=== PATIENT | female | born 2000 | race Caucasian/White ===

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

== ENCOUNTER 2024-12-07 06:53 | Emergency (ER) | payer OTHER ==
[2024-12-07 06:58] VITALS: RESP 20
--- NOTE | 2024-12-07 07:10 | ED ---
Back Pain HPI - General Chief Complaint: Back Pain/Injury Stated Complaint: L side back pain Time Seen by Provider: 12/07/24 06:58 Source: patient, RN notes reviewed Limitations: no limitations - History of Present Illness Initial Comments: 23-year-old female no significant medical history presenting to emergency department for complaint of sciatic nerve irritation. Patient states that she has been battling left-sided sciatic nerve irritation over the past 4 to 6 weeks that originated when she woke up from sleep 1 morning. She denies precipitating falls or injuries. Patient has been evaluated at multiple emergency rooms and outpatient by her primary care provider where she has been referred to physical therapy for further evaluation. Patient states that she completed 3 class of physical therapy and is attempting to schedule closer to where she is enrolled in college. She denies loss of bladder bowel continence, saddle anesthesias, fevers, history of IV drug use. Has been prescribed gabapentin although this medication ran out, has few muscle relaxers left. Recently took Tylenol at 1200am this morning. - Related Data Previous Rx's Medication Instructions Recorded methocarbamoL [Robaxin] 1,000 mg PO QID #20 tab 12/07/24 Allergies Allergy/AdvReac Type Severity Reaction Status Date / Time No Known Allergies Allergy Verified 12/07/24 06:57 Review of Systems ROS Statement: Those systems with pertinent positive or pertinent negative responses have been documented in the HPI. ROS Other: All systems not noted in ROS Statement are negative. Past Medical History Additional Past Medical History / Comment(s): cardiac History of Any Multi-Drug Resistant Organisms: None Reported Past Surgical History: Adenoidectomy, Ear Surgery, Tonsillectomy Past Psychological History: Anxiety, Depression Smoking Status: Former smoker Past Alcohol Use History: None Reported Past Drug Use History: None Reported General Exam Limitations: no limitations General appearance: alert, in no apparent distress Respiratory exam: Present: normal lung sounds bilaterally. Absent: respiratory distress, wheezes, rales, rhonchi, stridor Cardiovascular Exam: Present: regular rate, normal rhythm, normal heart sounds. Absent: systolic murmur, diastolic murmur, rubs, gallop, clicks GI/Abdominal exam: Present: soft, normal bowel sounds. Absent: distended, tenderness, guarding, rebound, rigid Extremities exam: Present: normal inspection, full ROM, normal capillary refill. Absent: tenderness, pedal edema, joint swelling, calf tenderness Back exam: Present: tenderness. Absent: full ROM, CVA tenderness (R), CVA tenderness (L) Expanded Back exam: Positive Straight Leg Raise: Left Neurological exam: Present: alert, oriented X3, CN II-XII intact Course Vital Signs 12/07/24 06:54 Temperature 97.8 F Pulse Rate 111 H Respiratory 20 Rate Blood Pressure 133/82 O2 Sat by Pulse 100 Oximetry Medical Decision Making - Medical Decision Making Was pt. sent in by a medical professional or institution (, [facility], OVER[employer] SH[employer]AGE AND DAMAGE CLERK, urgent care, hospital, or penitentiary...) When possible be specific @ -No Did you speak to anyone other than the patient for history (EMS, parent, family, police, friend...)? What history was obtained from this source @ -No Did you review nursing and triage notes (agree or disagree)? Why? @ -I reviewed and agree with nursing and triage notes Were old charts reviewed (outside hosp., previous admission, EMS record, old EKG, old radiological studies, urgent care reports/EKG's, penitentiary records)? Report findings @ -No old charts were reviewed Differential Diagnosis (chest pain, altered mental status, abdominal pain women, abdominal pain men, vaginal bleeding, weakness, fever, dyspnea, syncope, headache, dizziness, GI bleed, back pain, seizure, CVA, palpatations, mental health, musculoskeletal)? @ -Differential Back Pain: Strain, zoster, cauda equina syndrome, epidural abscess, vertebral osteomyelitis, discitis, fracture, subluxation, disc herniation, DJD, spinal stenosis, dissection, AAA, pancreatitis, peptic ulcer disease, pyelonephritis, k idney stone, this is not meant to be an all-inclusive list. EKG interpreted by me (3pts min.). @ -None X-rays interpreted by me (1pt min.). @ -None done CT interpreted by me (1pt min.). @ -None done U/S interpreted by me (1pt. min.). @ -None done What testing was considered but not performed or refused? (CT, X-rays, U/S, labs)? Why? @ -None What meds were considered but not given or refused? Why? @ -None Did you discuss the management of the patient with other professionals (professionals i.e. , [facility], OVER[employer] SH[employer]AGE AND DAMAGE CLERK, lab, RT, psych nurse, social contact worker, climatology professor, teacher, immigration services officer, supervisor case loading)? Give summary @ -No Was smoking cessation discussed for >3mins.? @ -No Was critical care preformed (if so, how long)? @ -No Were there social determinants of health that impacted care today? How? (Homele ssness, low income, unemployed, alcoholism, drug addiction, transportation, low edu. Level, literacy, decrease access to med. care, retirement, rehab)? @ -No Was there de-escalation of care discussed even if they declined (Discuss DNR or withdrawal of care, Hospice)? DNR status @ -No What co-morbidities impacted this encounter? (DM, HTN, Smoking, COPD, CAD, Cancer, CVA, ARF, Chemo, Hep., AIDS, mental health diagnosis, sleep apnea, morbid obesity)? @ -None Was patient admitted / discharged? Hospital course, mention meds given and route, prescriptions, significant lab abnormalities, going to OR and other pertinent info. @ -Discharge. 23-year-old female presenting with sciatic nerve irritation. Physical exam remarkable for positive straight leg test of the left leg, negative red flag findings concerning for cauda equina. She is provided with Norflex and Toradol for pain relief. Symptoms have improved. Provided with outpatient prescription for methocarbamol and follow-up with orthopedic spe cialist. Recommend continue supportive treatment and gentle exercising and stretching at home. Case discussed with Dr. Hernandez Undiagnosed new problem with uncertain prognosis? @ -No Drug Therapy requiring intensive monitoring for toxicity (Heparin, Nitro, Insulin, Cardizem)? @ -No Were any procedures done? @ -No Diagnosis/symptom? @ -sciatica Acute, or Chronic, or Acute on Chronic? @ -acute Uncomplicated (without systemic symptoms) or Complicated (systemic symptoms)? @ -uncomplicated Side effects of treatment? @ -No Exacerbation, Progression, or Severe Exacerbation? @ -No Poses a threat to life or bodily function? How? (Chest pain, [place], [place], pneumonia, PE, COPD, DKA, ARF, appy, cholecystitis, CVA, Diverticulitis, Homicidal, Suicidal, threat to staff... and all critical care pts) @ -No Disposition Clinical Impression: Sciatic leg pain Disposition: HOME SELF-CARE Condition: Stable Instructions (If sedation given, give patient instructions): Sciatica (ED) Additional Instructions: Please return to the Emergency Department if symptoms worsen or any other concerns. Prescriptions: methocarbamoL [Robaxin] 1,000 mg PO QID #20 tab Is patient prescribed a controlled substance at d/c from ED?: No Referrals: Robb Nieves MD [Primary Care Provider] - 1-2 days Nicole Millan DO [Doctor of Osteopathic Medicine] - 1-2 days Time of Disposition: 08:07
[2024-12-07] MEDS: KETOROLAC 15 MG/ML 1 ML VIAL IM STA (07:23)
[2024-12-07] MEDS: ORPHENADRINE 30 MG/ML 2 ML VIAL IM STA (07:23)
[2024-12-07 09:10] VITALS: BP 137/84; PULSE 87; TEMP 98.4
== END 2024-12-07 08:57 | disposition home or self-care (01) ==
LOC: EC 06:53
DX: M79.605 Pain in left leg (principal); Z87.891 Personal history of nicotine dependence
CPT/HCPCS: 99283; 96372; J2360; J1885